=== PATIENT | male | born 1985 | race Caucasian/White ===

== ENCOUNTER → 2017-01-13 06:05 | Day surgery (SDC) | payer MEDICAID ==
--- NOTE | 2017-01-04 07:58 | HP ---
HISTORY AND PHYSICAL: DATE OF ADMISSION: 01/13/17 DATE OF OFFICE VISIT: 01/03/17 SURGEON: Rhiannon Guidry MD (DICTATED BY MANINDER MCCORMACK) PROCEDURES: Right knee arthroscopy, partial medial meniscectomy, possible synovectomy, and possible chondroplasty. CHIEF COMPLAINT: Right knee pain. HISTORY OF PRESENT ILLNESS: Darshan is a 31-year-old gentleman who injured his right knee falling off the ladder back in June. Since that time, he has had pain and swelling on the medial aspect of the right knee with catching and locking sensation and MRI shows a medial meniscus tear. He elected to proceed with a right knee arthroscopy with Dr. Guidry. PAST MEDICAL HISTORY: Denies. PAST SURGICAL HISTORY: Mcintosh teeth extraction. CURRENT MEDICATIONS: [id number] ibuprofen. ALLERGIES: None. FAMILY HISTORY: Melanoma. SOCIAL HISTORY: He is 31-year-old. He is single. He smokes half a pack a day for the last 10 years. He denies use drugs or alcohol. REVIEW OF SYSTEMS: A complete 14-point review of systems was reviewed with the patient, and all was negative or noncontributory. PHYSICAL EXAMINATION GENERAL: His is a well developed, well nourished, in no acute distress. VITAL SIGNS: He stands 6 feet tall, weighs 188 pounds. His blood pressure is 118/70. His heart rate is 16. HEENT: Normocephalic, atraumatic. NECK: Supple. No palpable lymph nodes. Trachea is midline. PULMONARY: Lungs are clear to auscultation bilaterally. No wheezes, rhonchi, or rales. CARDIO: Regular rate and rhythm. Strong S1 and S2. No murmurs, gallops, or rubs. No peripheral edema. ABDOMEN: Soft, nontender, nondistended. MUSCULOSKELETAL: Right lower extremity, the skin is intact. He has tenderness over the medial joint line and MCL. There is no varus or valgus instability. Negative Mu. He has 2+ dorsalis pedis pulses. Intact sensation and his lower extremity muscle group strengths were intact at 5/5. NEUROLOGICAL: He is alert and oriented x3. Cranial nerves II through XII are intact. ASSESSMENT AND PLAN: Darshan is a 31-year-old gentleman with complaints of medial right knee pain. An MRI shows a medial meniscus tear. He has elected to proceed with right total knee arthroscopy with partial medial meniscectomy, possible synovectomy and possible chondroplasty. Dr. Guidry discussed the risks and benefits of the surgery with him today and all his questions were answered. He will follow up with Dr. Guidry in 10 to 14 days after the surgery. MANINDER MCCORMACK [id number]/[facility] #: [id number] MTDCandice
[~2017-01-13 06:05] MED LIST: Acetaminophen IV 1GM/100ML * 100 ML IVPB ONE; Buffered Lidocaine 1% SYRIN* 3 ML/SYR SYRINGE INTRADERM ONE; Bupivacaine 0.5% SDV PF* 30 ML VIAL ONE; Dexamethasone IV* 4 MG/ML 1 ML (4 MG) ONE; EPINEPHrine AMP 1 MG/ML ONE; Famotidine IV* 10 MG/ML 2 ML (20 mg) IV ONE; Famotidine IV* 10 MG/ML 2 ML (20 mg) ONE; Gabapentin CAP(*) 300 MG ONE; Gabapentin CAP(*) 300 MG PO ONE; KETAMINE HCL* 50 MG/ML 10 ML VIAL ONE; Lidocaine 2% PF* 5 ML VIAL ONE; Metoclopramide TAB* 10 MG ONE; Metoclopramide TAB* 10 MG PO ONE; Midazolam* 1 MG/ML 5 ML VIAL (5 MG) ONE; Ondansetron INJ* 2 MG/ML VIAL IV PRN; Ondansetron INJ* 2 MG/ML VIAL ONE; Propofol* 10 MG/ML 20 ML BTL IV PUSH ONE; ceFAZolin 2 GM PREMIX(*) 2 GM/50 ML BAG IVPB ONE; celeCOXIB CAP* 100 MG ONE; celeCOXIB CAP* 200 MG PO ONE; methylPREDNISolone ACETATE 80* 80 MG/ML 1 ML VIAL ONE
[2017-01-13 09:37] VITALS: BP 150/91
--- NOTE | 2017-01-14 08:57 | OP ---
DATE OF OPERATION: 01/13/17 [facility] DATE OF : 83 SURGEON: Rhiannon Guidry MD PROTECTIVE SERVICE SPECIALIST: MANINDER Cox ANESTHESIOLOGIST: Dr. Tang. ANESTHESIA: General. PRE-OP DIAGNOSIS: Right knee pain and medial meniscal tear. POST-OP DIAGNOSIS: Right knee pain and medial meniscal tear. OPERATIVE PROCEDURE: Right knee arthroscopy with partial medial meniscectomy and anterior synovectomy. COMPLICATIONS: None. SPECIMENS: None. ESTIMATED BLOOD LOSS: Less than 25 cc. BRIEF HISTORY/INDICATIONS: Mr. Vargas is a 31-year-old gentleman with 6 months of increasingly severe right knee pain after a fall down a ladder. He was found on MRI to have medial meniscal tear. Due to continued pain and decreased quality of life despite conservative treatment, the patient elected to have right knee arthroscopy. Informed consent was obtained from the patient. He understood the risk of the procedure included but were not limited to bleeding, infection, damage to nearby structures, continued pain, need for further surgery, stroke, heart attack, blood clot, and . He wished to proceed. INTRAOPERATIVE FINDINGS: Intraoperatively, the patient was noted to have a linear tear in the posterior one-third of the medial meniscus in the white-red zone. He also had a root tear, which was radial. The patient was noted to have some mild-to- moderate degenerative changes in the medial and patellofemoral compartment. These were grade 2 and 3 Outerbridge cartilage changes. He was noted to have a large amount of synovitis anteriorly and anteromedially, which did impinge with patellofemoral range of motion. DESCRIPTION OF PROCEDURE: Mr. Vargas was identified in the preanesthesia unit. His right lower extremity was marked as the correct operative site. Informed consent was signed and placed in the chart. The patient was taken to the operating room and placed under general anesthesia. Right lower extremity was prepped and draped in usual sterile fashion. Preop time-out was made to correctly identify the patient's side and site. Appropriate perioperative antibiotics were given within 1 hour of incision. A one- half centimeter anterolateral portal incision was made along the anterolateral joint line. The trocar was introduced. As soon as the light and water sources were turned on, there was immediate visualization of the knee joint. A tour of the knee joint was made. Suprapatellar pouch had no obvious abnormality. There is a large amount of anterior synovitis and soft tissue. Patellofemoral compartment shows some cartilage and grade 2/3 Outerbridge cartilage changes along the medial patellar facet. There is a large amount of synovitis anteromedially along the joint line, which did impinge with patellofemoral range of motion. No loose body or significant plica in the medial gutter. Medial compartment showed an obvious root tear and postero- medial meniscal tear. Some grade 2 and 3 Outerbridge cartilage changes along the medial femoral condyle. No exposed subchondral bone. ACL appeared to be intact. The knee was placed in the [id number] position. Lateral compartment showed no significant degenerative changes or meniscal tear. Under direct visualization, a medial portal incision was made with a 15 blade. The probe was introduced and a second tour of the knee joint was performed. No additional findings were noted. First, the radiofrequency ablation wand and shaver were used to perform an anterior synovectomy. Much better visualization of the knee joint was noted. There was no further impingement of soft tissue anteromedially with patellofemoral tracking. Straight biter and shaver were used to perform partial medial meniscectomy along the posterior medial meniscus in the white-red zone. Radial root tear was excised as well as a linear tear in the white-red zone of the posterior one- third of the meniscus. A smooth border was obtained. The shaver was placed in the suprapatellar pouch and the knee was thoroughly irrigated. The instruments were carefully removed. Incisions were closed using 3- 0 nylon suture. Intraarticular injection of 80 mg Depo-Medrol and 6 cc of 0.25% Marcaine was placed in the knee joint. The patient's incision was covered with Xeroform, 4x4's, and Webril. [place] wrap and cold pack were placed over this. The patient's anesthesia was reversed without difficulty. He was taken to the PACU in stable condition. Intended weightbearing will be weightbearing as tolerated. Intended DVT prophylaxis will be an aspirin daily. [id number]/[facility] #: [id number] [facility]
== END | disposition home or self-care (01) ==
LOC: OR 06:05
PROVIDERS: ATTEND Orthopaedic Surgery Adult Reconstructive Orthopaedic Surgery
DX: S83.241A Other tear of medial meniscus, current injury, right knee, initial encounter (principal); F17.210 Nicotine dependence, cigarettes, uncomplicated; W11.XXXA Fall on and from ladder, initial encounter; Y92.9 Unspecified place or not applicable
CPT/HCPCS: A9270-GY; J0171; J0690; J1040; J1100; J2250; J2405; J2704

== ENCOUNTER 2017-04-05 10:44 | Observation (INO) | payer OTHER ==
[2017-04-05] MEDS ORDERED: HYDROmorphone* 1 MG/ML 1 ML SYR IV ONE (11:29)
[2017-04-05] MEDS ORDERED: Ondansetron INJ* 2 MG/ML VIAL IV ONE (11:29)
[2017-04-05] MEDS ORDERED: Nicotine Inhaler* 10 MG AMP INH ONE (11:33)
[2017-04-05 11:43] LABS: Urine Bilirubin Negative (Negative); Urine Glucose Negative (Negative); Urine Nitrite Negative (Negative)
[2017-04-05 12:00] LABS: Hematocrit 43 % (42-52); Hemoglobin 14.6 g/dl (14.0-18.0); Mean Corpuscular HGB Conc 34 g/dl (31-36); Mean Corpuscular Hemoglobin 30 pg (27-31); Mean Corpuscular Volume 89 fL (80-94); Mean Platelet Volume 9 um3 (7.4-10.4); Red Blood Count 4.81 10^6/ul (4.0-5.4); Red Cell Distribution Width 14 % (10.5-15); White Blood Count 9.1 10^3/ul (3.5-10.8)
[2017-04-05] MEDS ORDERED: Mouth Piece, Nicotine* 1 EACH CARTRIDGE INH PRN ×2 (12:08→16:45)
[2017-04-05 12:21] LABS: AST 517 U/L (13-39); Alkaline Phosphatase 307 U/L (34-104); Anion Gap 3 mmol/L (2-11); BUN/Creatinine Ratio 5.6 (8-20); Blood Urea Nitrogen 4 mg/dL (6-24); C Reactive Protein 3.23 mg/L (< 5.00); CO2 Carbon Dioxide 31 mmol/L (22-32); Calcium 9.1 mg/dL (8.6-10.3); Chloride 101 mmol/L (101-111); EGFR African American 165.3 (>60); EGFR Non-African American 128.6 (>60); Globulin 3.2 g/dL (2-4); Glucose 91 mg/dL (70-100); Lipase 11 U/L (11.0-82.0); Potassium 3.3 mmol/L (3.5-5.0); Sodium 135 mmol/L (133-145); Total Protein 7.2 g/dL (6.4-8.9)
--- NOTE | 2017-04-05 12:27 | RAD ---
HISTORY: Right upper quadrant pain COMPARISONS: None TECHNIQUE: Multiple transverse and longitudinal ultrasound images were obtained of the right upper quadrant of the abdomen using grayscale and color Doppler imaging. FINDINGS: LIVER: The liver is normal in shape, size, contour, and echogenicity. There are no focal parenchymal masses. There is normal hepatopedal flow of the portal vein on Doppler imaging. BILIARY TREE: There is no intrahepatic or extrahepatic biliary dilatation. The common duct measures 0.3 cm. GALLBLADDER: The gallbladder is incompletely distended. Multiple shadowing echogenic foci consistent with gallstones are noted. There is no gallbladder wall thickening, pericholecystic fluid, or sonographic Cruz sign. PANCREAS: The head of the pancreas is unremarkable. The tail of the pancreas is not well visualized secondary to overlying bowel gas. RIGHT KIDNEY: The right kidney is normal in shape, size, contour, and echogenicity. There is no hydronephrosis or nephrolithiasis. The right kidney measures 12.8 x 5.3 x 5 cm. AORTA AND IVC: The aorta and IVC are unremarkable. FLUID: There are no pleural effusions. There is no free fluid within the hepatorenal recess. OTHER FINDINGS: None. IMPRESSION: CHOLELITHIASIS WITHOUT SONOGRAPHIC FEATURES OF ACUTE CHOLECYSTITIS
[2017-04-05 12:46] LABS: ALT 962 U/L (7-52)
[2017-04-05] MEDS ORDERED: Ondansetron INJ* 2 MG/ML VIAL IV PRN (14:30)
[2017-04-05] MEDS ORDERED: Al Hydrox/Mg Hydrox/Simet LIQ* 30 ML UDC ONE (14:39)
[2017-04-05] MEDS: Al Hydrox/Mg Hydrox/Simet LIQ* 30 ML UDC PO PRN ×2 (14:41→20:04)
[2017-04-05 15:08] LABS: Benzodiazepine Urine Screen None Detected (None Detect)
--- NOTE | 2017-04-05 16:27 | ED ---
Regino Elizalde Thomas, scribed for Thanh Hogan MD on 04/05/17 at 1138 . HPI Chest Pain - HPI Summary HPI Summary: Pt is a 31 y/o M presenting to the ED c/o CP that began 5 days ago. CP is rated 8/10 in severity. He describes the CP as a tightness, "caught in throat", and indigestion-like in quality. The pain is intermittent and worse in the AM. The pt additionally c/o nausea, vomiting (once, last night), constipation (duration 4 days but has since resolved), dark urine, and scleral icterus. He denies dysuria. The pt states that his dark urine is alleviated when he drinks copious fluids. He is able to eat but says that it is uncomfortable to do so. The patient denies recent alcohol use. He smokes 1/2 PPD. - History of Current Complaint Chief Complaint: EDChestPainROMI Hx Obtained From: Patient Onset/Duration: Started Days Ago - 5 days ago, Still Present Timing: Intermittent - worse in AM Current Severity: Moderate Pain Intensity: 8 Pain Scale Used: 0-10 Numeric Character: Tightness, Other: - POS: "indigestion-like", "caught in throat" Aggravating Factor(s): Other: - NEG: pt says it is uncomfortable to eat but CP is not aggravated as a result Alleviating Factor(s): Nothing Associated Signs and Symptoms: Positive: Nausea, Vomiting, Other: - POS: constipation, 4 days, since resolved; dark urine; scleral icterus, NEG: dysuria - Allergy/Home Medications Allergies/Adverse Reactions: Allergies Allergy/AdvReac Type Severity Reaction Status Date / Time SHELLFISH Allergy Severe Swelling Uncoded 01/13/17 06:22 Of Face,Lips,& Throat PMH/Surg Hx/FS Hx/Imm Hx Previously Healthy: No Cardiovascular History: Denies: Hx Pacemaker/ICD Respiratory History: Reports: Other Respiratory Problems/Disorders - SMOKER Musculoskeletal History: Reports: Other Musculoskeletal History - INJURY TO KNEE Sensory History: Denies: Hx Contacts or Glasses, Hx Hearing Aid Opthamlomology History: Denies: Hx Contacts or Glasses Psychiatric History: Reports: Hx Substance Abuse - polysubstance abuse Denies: Hx Panic Disorder - Surgical History Hx Anesthesia Reactions: No Infectious Disease History: No Infectious Disease History: Denies: Traveled Outside the [place] in Last 30 Days - Family History Known Family History: Positive: Other - POS: melanoma - Social History Alcohol Use: None Substance Use Type: Reports: Cocaine, Heroin, Marijuana, Other Substance Use Comment - Amount & Last Used: opiates denies use x 1 year Hx Tobacco Use: Yes - ALSO MARIJUANA Smoking Status (MU): Current Every Day Smoker Type: Cigarettes Amount Used/How Often: 2 packs/day Have You Smoked in the Last Year: Yes Review of Systems Constitutional: Negative Eyes: Other - POS: scleral icterus Positive: Chest Pain - tighness and indigestion-like Respiratory: Negative Positive: Vomiting, Nausea, Other - POS: constipation, 4 days, has since resolved Positive: other - POS: dark urine. Negative: dysuria Musculoskeletal: Negative Skin: Negative Neurological: Negative Psychological: Normal All Other Systems Reviewed And Are Negative: Yes Physical Exam Triage Information Reviewed: Yes Vital Signs On Initial Exam: Initial Vitals Temp Pulse Resp BP Pulse Ox 98.0 F 70 18 150/92 99 04/05/17 10:45 04/05/17 10:45 04/05/17 10:45 04/05/17 10:45 04/05/17 10:45 Vital Signs Reviewed: Yes Appearance: Positive: Well-Appearing, No Pain Distress Skin: Positive: Warm, Skin Color Reflects Adequate Perfusion, Dry. Negative: Jaundiced Head/Face: Positive: Normal Head/Face Inspection Eyes: Positive: Other: - POS: mild scleral icterus ENT: Positive: Normal ENT inspection Neck: Positive: Supple, Nontender Respiratory/Lung Sounds: Positive: Clear to Auscultation, Breath Sounds Present Cardiovascular: Positive: RRR Abdomen Description: Positive: Other: - POS: Cruz's sign; mild TTP RUQ Bowel Sounds: Positive: Present Musculoskeletal: Positive: Normal Neurological: Positive: Normal, Sensory/Motor Intact, Alert, Oriented to Person Place, Time, CN Intact II-III Psychiatric: Positive: Normal, Affect/Mood Appropriate Diagnostics - Vital Signs Vital Signs Temp Pulse Resp BP Pulse Ox 04/05/17 10:47 98.0 F 73 20 150/92 99 04/05/17 10:45 98.0 F 70 18 150/92 99 - Laboratory Lab Results: Lab Results 04/05/17 04/05/17 04/05/17 Range/Units 11:26 11:46 11:46 WBC 9.1 (3.5-10.8) 10^3/ul RBC 4.81 (4.0-5.4) 10^6/ul Hgb 14.6 (14.0-18.0) g/dl Hct 43 (42-52) % MCV 89 (80-94) fL MCH 30 (27-31) pg MCHC 34 (31-36) g/dl RDW 14 (10.5-15) % Plt Count 248 (150-450) 10^3/ul MPV 9 (7.4-10.4) um3 Neut % (Auto) 47.6 (38-83) % Lymph % (Auto) 38.8 (25-47) % Cobb % (Auto) 9.7 H (1-9) % Eos % (Auto) 3.4 (0-6) % Baso % (Auto) 0.5 (0-2) % Absolute Neuts (auto) 4.3 (1.5-7.7) 10^3/ul Absolute Lymphs (auto) 3.5 (1.0-4.8) 10^3/ul Absolute Monos (auto) 0.9 H (0-0.8) 10^3/ul Absolute Eos (auto) 0.3 (0-0.6) 10^3/ul Absolute Basos (auto) 0 (0-0.2) 10^3/ul Absolute Nucleated RBC 0.01 10^3/ul Nucleated RBC % 0.1 INR (Anticoag Therapy) (0.89-1.11) Sodium 135 (133-145) mmol/L Potassium 3.3 L (3.5-5.0) mmol/L Chloride 101 (101-111) mmol/L Carbon Dioxide 31 (22-32) mmol/L Anion Gap 3 (2-11) mmol/L BUN 4 L (6-24) mg/dL Creatinine 0.71 (0.67-1.17) mg/dL Est GFR ( Amer) 165.3 (>60) Est GFR (Non-Af Amer) 128.6 (>60) BUN/Creatinine Ratio 5.6 L (8-20) Glucose 91 (70-100) mg/dL Lactic Acid (0.5-2.0) mmol/L Calcium 9.1 (8.6-10.3) mg/dL Total Bilirubin 5.90 H (0.2-1.0) mg/dL Direct Bilirubin 3.40 H (0.03-0.18) mg/dL AST 517 H (13-39) U/L ALT 962 H (7-52) U/L Alkaline Phosphatase 307 H (34-104) U/L Troponin I 0.00 (<0.04) ng/mL C-Reactive Protein 3.23 (< 5.00) mg/L Total Protein 7.2 (6.4-8.9) g/dL Albumin 4.0 (3.2-5.2) g/dL Globulin 3.2 (2-4) g/dL Albumin/Globulin Ratio 1.3 (1-3) Lipase 11 (11.0-82.0) U/L Urine Color Ethel Urine Appearance Clear Urine pH 6.0 (5-9) Ur Specific [place] 1.005 L (1.010-1.030) Urine Protein Negative (Negative) Urine Ketones Negative (Negative) Urine Blood Negative (Negative) Urine Nitrate Negative (Negative) Urine Bilirubin Negative (Negative) Urine Urobilinogen Negative (Negative) Ur Leukocyte Esterase Negative (Negative) Urine Glucose Negative (Negative) Urine Opiates Screen (None Detect) Acetaminophen Pending Ur Barbiturates Screen (None Detect) Ur Phencyclidine Scrn (None Detect) Ur Amphetamines Screen (None Detect) U Benzodiazepines Scrn (None Detect) Urine Cocaine Screen (None Detect) U Cannabinoids Screen (None Detect) 04/05/17 04/05/17 04/05/17 Range/Units 11:46 11:46 14:45 WBC (3.5-10.8) 10^3/ul RBC (4.0-5.4) 10^6/ul Hgb (14.0-18.0) g/dl Hct (42-52) % MCV (80-94) fL MCH (27-31) pg MCHC (31-36) g/dl RDW (10.5-15) % Plt Count (150-450) 10^3/ul MPV (7.4-10.4) um3 Neut % (Auto) (38-83) % Lymph % (Auto) (25-47) % Cobb % (Auto) (1-9) % Eos % (Auto) (0-6) % Baso % (Auto) (0-2) % Absolute Neuts (auto) (1.5-7.7) 10^3/ul Absolute Lymphs (auto) (1.0-4.8) 10^3/ul Absolute Monos (auto) (0-0.8) 10^3/ul Absolute Eos (auto) (0-0.6) 10^3/ul Absolute Basos (auto) (0-0.2) 10^3/ul Absolute Nucleated RBC 10^3/ul Nucleated RBC % INR (Anticoag Therapy) 0.95 (0.89-1.11) Sodium (133-145) mmol/L Potassium (3.5-5.0) mmol/L Chloride (101-111) mmol/L Carbon Dioxide (22-32) mmol/L Anion Gap (2-11) mmol/L BUN (6-24) mg/dL Creatinine (0.67-1.17) mg/dL Est GFR ( Amer) (>60) Est GFR (Non-Af Amer) (>60) BUN/Creatinine Ratio (8-20) Glucose (70-100) mg/dL Lactic Acid 1.3 (0.5-2.0) mmol/L Calcium (8.6-10.3) mg/dL Total Bilirubin (0.2-1.0) mg/dL Direct Bilirubin (0.03-0.18) mg/dL AST (13-39) U/L ALT (7-52) U/L Alkaline Phosphatase (34-104) U/L Troponin I (<0.04) ng/mL C-Reactive Protein (< 5.00) mg/L Total Protein (6.4-8.9) g/dL Albumin (3.2-5.2) g/dL Globulin (2-4) g/dL Albumin/Globulin Ratio (1-3) Lipase (11.0-82.0) U/L Urine Color Urine Appearance Urine pH (5-9) Ur Specific [place] (1.010-1.030) Urine Protein (Negative) Urine Ketones (Negative) Urine Blood (Negative) Urine Nitrate (Negative) Urine Bilirubin (Negative) Urine Urobilinogen (Negative) Ur Leukocyte Esterase (Negative) Urine Glucose (Negative) Urine Opiates Screen Presumptive positive H (None Detect) Acetaminophen Ur Barbiturates Screen None detected (None Detect) Ur Phencyclidine Scrn None detected (None Detect) Ur Amphetamines Screen None detected (None Detect) U Benzodiazepines Scrn None detected (None Detect) Urine Cocaine Screen None detected (None Detect) U Cannabinoids Screen None detected (None Detect) Result Diagrams: 04/05/17 11:46 04/05/17 11:46 Lab Statement: Any lab studies that have been ordered have been reviewed, and results considered in the medical decision making process. - Ultrasound No standard instances Ultrasound Interpretation: No Acute Changes - US Gallbladder. Impression: cholelithiasis without sonographic features of acute cholecystitis Ultrasound Interpretation Completed By: Radiologist - EKG 1056 Cardiac Rate: NL - 67 bpm EKG Rhythm: Sinus Rhythm EKG Interpretation: NSR. Non-specific changes not significantly different from 03/06/14 Chest Pain Course/Dx - Course Course Of Treatment: Mr. Vargas presented with a concern for his eyes turning yellow and low chest pain intermittently for 5 days. He was noted to have icterus and tenderness in the RUQ with a postive Cruz's sign. Labs revealed hepatitis and with his history of IVD use, I am concerned for a viral infection. - Diagnoses Provider Diagnoses: Hepatitis, acute - Provider Notifications Discussed Care Of Patient With: Tomas Higuera Time Discussed With Above Provider: 12:31 Instructed by Provider To: Other - Discussed case. Discharge - Discharge Plan Condition: Fair Disposition: ADMITTED TO [facility] Referrals: No Primary Care Phys,NOPCP [Primary Care Provider] - The documentation as recorded by the Regino gandhi Thomas accurately reflects the service I personally performed and the decisions made by me, Thanh Hogan MD.
[2017-04-05] MEDS: Nicotine Inhaler* 10 MG AMP INH PRN ×2 (17:21→20:05)
[2017-04-05 17:24] LABS: Acetaminophen < 15 mcg/mL
[2017-04-05] MEDS: Morphine INJ* 2 MG/ML 1 ML SYRINGE IV PRN (20:05)
--- NOTE | 2017-04-05 23:38 | HP ---
HISTORY AND PHYSICAL: DATE OF ADMISSION: The patient has no PCP. CHIEF COMPLAINT: Jaundice, abdominal discomfort. HISTORY OF PRESENT ILLNESS: Mr. Vargas is a 31-year-old male with a past medical history of polysubstance abuse with a history of an unintentional overdose who presents to the hospital with yellow eyes and abdominal discomfort. The patient states that last , he went to see his counsellor who said that his eyes appeared as if they were turning yellow. The patient was also complaining of darkening of his urine and some right upper quadrant tightening and signs of indigestion. He has also reported alternating constipation and diarrhea, as well as nausea and vomiting in the past 2 nights. He states the stool has been a normal brown color. He denies any fever or chills. No shortness of breath. He takes ibuprofen and aspirin at times for pain. Denies any Tylenol use. The patient formerly used IV drugs including heroin and cocaine, as well as using marijuana, MDMA, and hallucinogens, but he states that the last time he used was about 6 months ago. He has been imprisoned a number of times for his drug use. He takes no other over-the- counter drugs. No supplements. Due to his yellowing eyes and worsening abdominal discomfort, he came to the hospital for further evaluation. PAST MEDICAL HISTORY: Polysubstance abuse, history of an unintentional overdose. PAST SURGICAL HISTORY: Right knee arthroscopy. HOME MEDICATIONS: Ibuprofen 600 mg daily as needed. ALLERGIES: SHELLFISH. FAMILY HISTORY: Significant for mother with melanoma. Paternal grandfather with Parkinson's and AFib. SOCIAL HISTORY: The patient denies any recent alcohol use. Last time was 6 months ago. History of cocaine, heroin, marijuana, MDMA, and hallucinogens; again last time 6 months ago. The patient is a current smoker. REVIEW OF SYSTEMS: A 12-point review of systems was negative except for that as in HPI. PHYSICAL EXAMINATION GENERAL: The patient is a young man, lying in bed, in no apparent distress. VITAL SIGNS: On admission, temperature 98.0, heart rate of 70, respiratory rate 18, O2 saturation 99% on room air, blood pressure 150/92. HEENT: Head: Normocephalic, atraumatic. Eyes: Sclerae icterus. Pupils equal , round, reactive to light and accommodation. ENT: Moist mucous membranes. NECK: No cervical adenopathy. LUNGS: Clear to auscultation bilaterally. No wheezes, rales or rhonchi. CARDIOVASCULAR: Regular rate and rhythm. S1, S2 present. No murmurs, gallops or rubs. ABDOMEN: Soft, nondistended, tenderness to palpation in the epigastric and right upper quadrant. No rebound or guarding. Bowel sounds positive. EXTREMITIES: No cyanosis, clubbing or edema. NEUROLOGIC: The patient is alert and oriented x3. No focal neurological deficits. LABS AND DIAGNOSTICS: White blood cell count of 9.1, hematocrit of 43, platelets of 248. INR of 0.95. Sodium 135, potassium 3.3, chloride of 101, carbon dioxide of 31, BUN 4, creatinine 0.71, glucose of 91. Lactic acid 1.3. Calcium 9.1. Total bilirubin of 5.9. AST of 517, ALT of 962, alk phos of 307. Troponin of 0.00. CRP of 3.23. Lipase of 11. UA negative. EKG shows normal sinus rhythm. No significant ST changes. Gallbladder ultrasound shows cholelithiasis without sonographic features of acute cholecystitis. Liver is normal in shape, size, contour and echogenicity. No masses. Normal hepatopetal flow of the portal vein on Doppler imaging. No intrahepatic or extrahepatic biliary dilatation. Common bile duct 0.3 cm. ASSESSMENT AND PLAN: Jaundice and transaminitis in a 31-year-old male with past medical history of polysubstance abuse. 1. Jaundice, transaminitis. Bilirubin is elevated at 5.9, we will fractionate. Ultrasound shows no evidence of any signs of obstructing stone. CBD is normal. Also, no evidence of portal vein thrombosis. The patient's transaminitis is showing a hepatocellular pattern. With his history, certainly concerned for possibly viral hepatitis. We will order a hepatitis screen. We will also check an acetaminophen level and U-tox. Check an KELLIE and antismooth muscle antibody, anti-LK microsome antibody, as well as IgG levels. Synthetic function of the liver seems to be working just fine. His INR, platelets, protein all normal. We will trend the patient's LFTs for now. We can consider a GI consult if needed but if labs are stable/improving tomorrow this can likely be worked up further as an outpatient 2. DVT prophylaxis. The patient is low risk, up ad timothy. 3. Code status. The patient is a full code. TIME SPENT: Total time spent on this admission 45 minutes, more than half the time spent [id number] with the patient in counseling and coordinating care. [id number]/[facility] #: [id number] MTDD
[2017-04-06] MEDS: Morphine INJ* 2 MG/ML 1 ML SYRINGE IV PRN ×2 (00:06→05:29)
[2017-04-06] MEDS: Al Hydrox/Mg Hydrox/Simet LIQ* 30 ML UDC PO PRN (05:40)
[2017-04-06 06:29] LABS: AST 563 U/L (13-39); Albumin 3.4 g/dL (3.2-5.2); Alkaline Phosphatase 314 U/L (34-104); BUN/Creatinine Ratio 11.1 (8-20); Blood Urea Nitrogen 9 mg/dL (6-24); CO2 Carbon Dioxide 32 mmol/L (22-32); Calcium 8.5 mg/dL (8.6-10.3); Chloride 104 mmol/L (101-111); EGFR Non-African American 110.4 (>60); Globulin 2.8 g/dL (2-4); Glucose 98 mg/dL (70-100); Potassium 3.9 mmol/L (3.5-5.0); Sodium 136 mmol/L (133-145); Total Protein 6.2 g/dL (6.4-8.9)
[2017-04-06 06:50] LABS: ALT 821 U/L (7-52)
[2017-04-06 07:22] VITALS: BP 123/75
[2017-04-06 11:01] LABS: Call Hep C TO BE CALLED
[2017-04-06 13:42] LABS: Immunoglobulin G1 812 mg/dL (341 - 894); Immunoglobulin G2 441 mg/dL (171 - 632); Immunoglobulin G3 59.2 mg/dL
[2017-04-06 16:35] LABS: Smooth Muscle Antibody Negative (Negative)
[2017-04-06 19:28] LABS: Liver/Kidney Microsomes Ab <5.0 U
--- NOTE | 2017-04-07 16:07 | DS ---
CC: Dr. Joseph; Abdullahi Romo MD * DISCHARGE SUMMARY: DATE OF ADMISSION: 04/05/17 DATE OF DISCHARGE: 04/06/17 PRIMARY CARE PROVIDER: Dr. Joseph. PRIMARY DIAGNOSIS: Vital hepatitis secondary to hepatitis C. SECONDARY DIAGNOSES: Include: 1. Past medical history for polysubstance abuse. 2. History of an unintentional overdose. MEDICATIONS ON DISCHARGE: Motrin 600 mg as needed. PERTINENT LABORATORY DATA: AST 563, ALT 821, alk phos 314, total bilirubin decreased from 5.9 to 4.6 prior to discharge. Pain resolved. Hepatitis C antibody high reactive. HISTORY OF PRESENT ILLNESS AND HOSPITAL COURSE: This is a 31-year-old man, past medical history as outlined in the history of present illness on the day of admission, presented to the hospital with increasing jaundice and abdominal discomfort since approximately a week prior to presentation. The patient notes he had an episode of constipation followed by diarrhea and abdominal discomfort. He was found jaundice in the emergency room with a transaminitis. The patient notes that he had been tested for hepatitis C approximately 6 months previously and it was negative; however, given his history of polysubstance abuse and symptomatology, it was repeated and returned high positive as indicated below. This was suspected to be an acute episode of hepatitis. LFTs were improving with downtrending bilirubin. He will be discharged to follow up with Dr. Joseph with repeat LFTs. Additionally, he will be following up with Dr. Romo to test hepatitis C therapy should he require in the future. There were no complications during this patient's hospital stay. On day of discharge, he is tolerating regular diet, ambulating freely. At followup, please; 1. Follow liver function test, ensure resolution of transaminitis. 2. Please ensure followup with Dr. Romo for further input on hepatitis C treatment after acute episode of hepatitis. 3. No other specific labs or vitals that need followup. Reasons to return to the hospital included, but not limited to recurrent or worsening symptoms including abdominal pain, nausea, vomiting, lightheadedness, fatigue, chest pain, shortness of breath, increasing jaundice were discussed with the patient prior to discharge and he acknowledged understanding. TIME SPENT: Greater than 60 minutes were spent on the discharge of this patient with greater than half spent [id number] with the patient and delivering counseling. [id number]/[facility] #: [id number] MALIA
== END 2017-04-06 14:45 | disposition home or self-care (01) ==
LOC: ED 10:44 → MED 14:30
PROVIDERS: ADMIT Hospitalist; ATTEND Internal Medicine
DX: B19.20 Unspecified viral hepatitis C without hepatic coma (principal); Z91.013 Allergy to seafood; R07.9 Chest pain, unspecified; F17.200 Nicotine dependence, unspecified, uncomplicated; K80.20 Calculus of gallbladder without cholecystitis without obstruction
CPT/HCPCS: 36415; 76705; 80053; 80074; 80307; 80329; 81003; 82248; 82784; 82787; 83605; 83690; 84484; 85025; 85610; 86038; 86140; 86255; 86376; 93005; 96374; 96375; 99283; A9270-GY; G0378; G0480; J1170; J2270; J2405

== ENCOUNTER 2023-04-15 00:08 | Observation (INO) ==
[2023-04-15 00:57] LABS: ABS Basophils 0.1 10^3/uL (0.0-0.1); ABS Monocytes 1.4 10^3/uL (0.0-1.1); ABS Neutrophils 18.3 10^3/uL (1.5-7.6); ABS Nucleated RBC 0.01 10^3/ul; Eosinophil % 0.2 %; Hematocrit 42.7 % (38-53); Hemoglobin 14.6 g/dL (13.2-16.3); Lymphocyte % 4.8 %; Mean Corpuscular Hemoglobin 30.4 pg (27-33); Mean Corpuscular Hgb Conc 34.1 g/dL (31-36); Mean Corpuscular Volume 89.1 fL (80-97); Mean Platelet Volume 7.9 fL (7.5-11.2); Platelet Count 308 10^3/uL (150-450); Red Blood Count 4.79 10^6/uL (4.06-5.63); Red Cell Distribution Width 12.4 % (12-17); White Blood Count 20.7 10^3/uL (3.6-10.2)
[2023-04-15 01:14] LABS: ALT 10 U/L (7-52); AST 16 U/L (13-39); Albumin 4.5 g/dL (3.2-5.2); Albumin/Globulin Ratio 1.7 (1-3); Alkaline Phosphatase 73 U/L (35-149); Anion Gap 10 mmol/L (2-16); Blood Urea Nitrogen 19 mg/dL (6-24); CO2 Carbon Dioxide 24 mmol/L (22-32); Calcium 9.1 mg/dL (8.6-10.3); Chloride 102 mmol/L (101-111); Creatine Kinase 110 U/L (10-223); Globulin 2.7 g/dL (2-4); Glucose 199 mg/dL (70-100); Potassium 3.8 mmol/L (3.5-5.0); Sodium 136 mmol/L (135-145); Total Protein 7.2 g/dL (6.4-8.9)
[2023-04-15 01:20] LABS: High Sens Troponin Baseline 131 pg/mL (<20)
[2023-04-15 01:36] LABS: Acetaminophen < 15 mcg/mL; Alcohol, S < 13 mg/dL (<13); Salicylate < 2.50 mg/dL (<30)
[2023-04-15] MEDS ORDERED: LORazepam 2 mg VIAL 1 ml IV PUSH ONE (01:38)
[2023-04-15] MEDS ORDERED: Ondansetron 4 mg VIAL 2 MG/ML 2 ml VIAL IV ONE (01:38)
[2023-04-15] MEDS ORDERED: Lorazepam PYXIS KEY PRN (01:38)
[2023-04-15 02:24] LABS: High Sensitivity Troponin 1 Hr 199 pg/mL (<20)
[2023-04-15] MEDS ORDERED: Ondansetron 4 mg VIAL 2 MG/ML 2 ml VIAL IV PRN (02:40)
[2023-04-15 06:10] LABS: ABS Basophils 0.1 10^3/uL (0.0-0.1); ABS Eosinophils 0.1 10^3/uL (0.0-0.5); ABS Lymphocytes 2.1 10^3/uL (1.0-4.8); ABS Monocytes 1.1 10^3/uL (0.0-1.1); ABS Neutrophils 10.6 10^3/uL (1.5-7.6); ABS Nucleated RBC 0.01 10^3/ul; Eosinophil % 0.4 %; Hematocrit 41.3 % (38-53); Hemoglobin 14.4 g/dL (13.2-16.3); Lymphocyte % 15.3 %; Mean Corpuscular Hemoglobin 31.4 pg (27-33); Mean Corpuscular Hgb Conc 34.9 g/dL (31-36); Mean Corpuscular Volume 89.9 fL (80-97); Mean Platelet Volume 7.9 fL (7.5-11.2); Nucleated Red Blood Cells % 0.1 /100 WBC (0.0-0.4); Platelet Count 323 10^3/uL (150-450); Red Blood Count 4.59 10^6/uL (4.06-5.63); Red Cell Distribution Width 12.6 % (12-17)
[2023-04-15 06:33] LABS: Calcium 9.2 mg/dL (8.6-10.3); Creatinine, Serum 0.81 mg/dL (0.67-1.17); Potassium 4.1 mmol/L (3.5-5.0); eGFR CKD-EPI 115.7 (>60)
[2023-04-15] MEDS ORDERED: Aminophylline 25 MG/ML VIAL ONE (08:31)
[2023-04-15] MEDS ORDERED: Regadenoson 0.4 MG/5 ML SYRINGE ONE (08:31)
[2023-04-15 11:14] LABS: Urine Appearance Cloudy; Urine Bilirubin Negative (Negative); Urine Blood Negative (Negative); Urine Color Yellow; Urine Glucose 2+(150 mg/dL) (Negative); Urine Ketones Trace (Negative); Urine Nitrite Negative (Negative); Urine Protein 1+(30 mg/dL) (Negative); Urine Specific Gravity 1.023 (1.002-1.030); Urine Urobilinogen Negative (Negative)
[2023-04-15 11:44] LABS: Urine Bacteria Absent (Absent); Urine Red Blood Cell Trace(0-2/hpf) (Absent); Urine White Blood Cell Trace(0-5/hpf) (Absent)
[2023-04-15 12:03] LABS: Urine Benzodiazepine Screen None Detected (None Detect); Urine Cannabinoids Screen None Detected (None Detect); Urine Opiates Screen None Detected (None Detect)
[2023-04-15 13:16] VITALS: BP 150/83
== END 2023-04-15 13:17 | disposition home or self-care (01) ==
LOC: ED 00:08 → EDHOLD 00:08 → SUATTDRO 02:40 → EDHOLD 13:16
PROVIDERS: ADMIT Student in an Organized Health Care Education/Training Program; ATTEND Internal Medicine